=== PATIENT | male | born 1995 | race Two or more races ===

== ENCOUNTER 2019-02-01 21:01 | Emergency (ER) | payer OTHER ==
[~2019-02-01] VITALS: Ht 162.6 cm; Wt 60.9 kg
[2019-02-01 21:02] VITALS: BP 135/82
[2019-02-02] MEDS ORDERED: IBUPROFEN 600 MG TAB PO ONE (00:30)
--- NOTE | 2019-02-02 09:03 | REP ---
Right hand series: Four views: History: Pain and swelling. Findings: Four views right hand show overall normal mineralization. There is an accessory ossicle adjacent to an exostosis along the radial aspect of the distal end of the proximal phalanx of the ring finger. This appears well corticated and old. It may be old post-traumatic change. No acute fracture is appreciated. Bones joints and soft tissues are otherwise unremarkable. Impression: No acute fracture. 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 Electronically Signed by Rudy Mi MD 02/02/2019 10:23 A
== END 2019-02-02 00:57 | disposition home or self-care (01) ==
LOC: M ED 21:01
DX: S60.221A Contusion of right hand, initial encounter (principal); S00.83XA Contusion of other part of head, initial encounter; Y04.0XXA Assault by unarmed brawl or fight, initial encounter; Y92.410 Unspecified street and highway as the place of occurrence of the external cause; Y93.9 Activity, unspecified; Y99.9 Unspecified external cause status